=== PATIENT | female | born 1955 | race Caucasian/White ===

== ENCOUNTER 2017-02-09 09:47 | Outpatient (CLI) | payer OTHER ==
[2017-02-09 10:09] LABS: BASOPHILS % 0.9 (0.0-1.5); EOSINOPHILS % 3.4 % (0.0-6.8); MEAN CORPUSCULAR HEMOGLOBIN 31.2 pg (28.0-34.0); MEAN CORPUSCULAR VOLUME 93.8 fl (80.0-100.0); MONOCYTES % 5.8 % (0.0-11.0); NEUTROPHILS # 2.3 # k/uL (1.4-7.7)
[2017-02-09 10:34] LABS: eGFR (African) > 60; eGFR (Non-African) > 60
== END 2017-02-09 09:50 ==
LOC: LAB 09:47
PROVIDERS: ATTEND Internal Medicine
DX: Z00.00 Encounter for general adult medical examination without abnormal findings (principal); Z51.81 Encounter for therapeutic drug level monitoring; Z79.899 Other long term (current) drug therapy; R53.82 Chronic fatigue, unspecified; I10 Essential (primary) hypertension; E78.5 Hyperlipidemia, unspecified; E55.9 Vitamin D deficiency, unspecified
CPT/HCPCS: 36415; 80053; 80061; 82306; 83036; 84439; 84443; 85025

== ENCOUNTER 2018-02-14 08:32 | Outpatient (CLI) | payer OTHER ==
[2018-02-14 08:51] LABS: BASOPHILS % 0.6 (0.0-1.5); EOSINOPHILS % 4.1 % (0.0-6.8); MEAN CORPUSCULAR HEMOGLOBIN 31.2 pg (28.0-34.0); MONOCYTES % 8.2 % (0.0-11.0); NEUTROPHILS # 3.6 # k/uL (1.4-7.7)
[2018-02-14 09:23] LABS: eGFR (African) > 60; eGFR (Non-African) > 60
== END 2018-02-14 08:33 ==
LOC: LAB 08:32
PROVIDERS: ATTEND Internal Medicine
DX: Z00.00 Encounter for general adult medical examination without abnormal findings (principal); E78.5 Hyperlipidemia, unspecified
CPT/HCPCS: 36415; 80053; 80061; 84439; 84443; 85025